=== PATIENT | female | born 1990 | race Caucasian/White ===

== ENCOUNTER → 2016-07-08 | Outpatient (CLI) | payer OTHER ==
--- NOTE | 2016-07-08 12:03 | DIAGNOSTIC IMAGING REPORT ---
RENAL ULTRASOUND HISTORY: R35.0 Urinary [id number] COMPARISON: None. FINDINGS: Right kidney: 10.2 cm. No hydronephrosis. Normal corticomedullary differentiation and cortical thickness. Left kidney: 10.4 cm. No hydronephrosis. Normal corticomedullary differentiation and cortical thickness. Bladder: No bladder wall thickening. The bilateral ureteral jets were identified. IMPRESSION: Normal renal ultrasound. Electronically signed by: Tito Tafoya M.D. 07/08/2016 12:02 PM Dictated Date/Time: 07/08/2016 12:01 PM
--- NOTE | 2016-07-08 12:13 | DIAGNOSTIC IMAGING REPORT ---
KUB CLINICAL HISTORY: R31.29 Hematuria COMPARISON STUDY: No previous studies for comparison. FINDINGS: There is a moderate amount stool within the rectosigmoid. There is no pathologic bowel dilatation. No urinary tract calcifications are visualized on conventional radiographic imaging. IMPRESSION: 1. No urinary tract calcifications identified 2. No evidence of pathologic bowel dilatation Electronically signed by: Bigg Zuleta M.D. 07/08/2016 12:12 PM Dictated Date/Time: 07/08/2016 12:11 PM
== END | disposition home or self-care (01) ==
LOC: C.ULTR 11:34
PROVIDERS: ATTEND Urology
DX: R31.29 Other microscopic hematuria (principal); R39.15 Urgency of urination; R35.0 Frequency of micturition

== ENCOUNTER → 2017-12-08 | Outpatient (CLI) | payer OTHER | END | disposition home or self-care (01) | LOC: C.RDSM 09:43 | PROVIDERS: ATTEND Podiatrist | DX: M79.671 Pain in right foot (principal) ==